=== PATIENT | male | born 1985 | race Caucasian/White ===

== ENCOUNTER 2022-09-03 08:43 | Observation (INO) | payer OTHER, SELFPAY ==
[2022-09-03] VITALS (30 sets, daily range): BP systolic 106–185; BP diastolic 76–135; PULSE 62–77; RESP 16–20; TEMP 36.2–36.6; O2SAT 90–100
--- NOTE | ~2022-09-03 | CT_ITS ---
EXAMINATION: CT abdomen pelvis w con DATE: 09/03/2022 14:15 INDICATION: Bilateral lower abdominal pain TECHNIQUE: Computed tomography (CT) of the abdomen and pelvis was performed with 100 cc Omnipaque 350 intravenous contrast. The dose-length product was 388.21 mGy-cm. Automated exposure control and iter ative reconstruction technique were employed. COMPARISON: CT dated 09/03/2022. FINDINGS: Heart size normal. No significant pleural or pericardial effusion. No significant vascular abnormality. No lymphadenopathy. Fatty infiltration of the liver. There are calcified granulomas of t he spleen. The pancreas, adrenal glands and kidneys are unremarkable. There is mild thickening of the ascending, transverse and descending colon, suspicious for colitis. No free air or free fluid. Laura l appendix. No free air or free fluid. Gallbladder is present. No significant vascular abnormality. N o lymphadenopathy. No acute osseous abnormality. IMPRESSION: 1. Mild thickening of the colon, suspicious for colitis, most likely infectious or inflammatory. Reviewed, dictated and finalized at location B.
--- NOTE | ~2022-09-03 | XR_ITS ---
EXAM: XR abdomen NG/feed tube insert DATE: 09/03/2022 17:13 HISTORY: NG placement . COMPARISON: None available. FINDINGS: NG tube, tip and side port project over the stomach Clear lung bases. Normal bowel gas marshall lenny. No organomegaly. No abnormal abdominal calcification. Regional bones and soft tissues normal for age. IMPRESSION: NG tube, in good position. Reviewed, dictated and finalized at location K. IMPRESSION: NG tube, in good position.
[2022-09-03 11:01] LABS: Basophils Percent Auto 0.2 % (0.2-1.2); Eosinophils Percent Auto 0.1 % (0-4.4); Hematocrit 47.5 % (42.0-52.0); Hemoglobin 17.1 g/dL (14.0-18.0); Immature Granulocyte Absolute 0.05 K/mm3 (0.00-0.031); Immature Granulocyte Percent A 0.3 % (0-0.5); Lymphocytes Absolute Auto 1.44 K/mm3 (0.9-3.2); Mean Corpuscular Hemoglobin 32.9 pg (26-34); Mean Corpuscular Volume 91.5 fl (80-100); Mean Platelet Volume 8.6 fl (7.4-10.4); Monocytes Absolute Auto 0.5 K/mm3 (0.1-0.6); Monocytes Percent Auto 3.3 % (2.6-8.5); Neutrophils Absolute Auto 13.9 K/mm3 (1.3-6.7); Neutrophils Percent Auto 87.1 % (45.5-73.1); Platelet Count Result 501 k/mm3 (150-375); Red Blood Count 5.19 M/mm3 (4.6-6.20); Red Cell Distribution Width 12.5 % (11.5-14.5); White Blood Count 15.9 K/mm3 (4.5-10.0)
[2022-09-03 11:13] LABS: Alanine Aminotransferase 23 U/L (6-50); Albumin Level 5.4 g/dL (3.5-5.1); Alkaline Phosphatase 93 U/L (38-126); Anion Gap 17 mmol/L (8-16); Aspartate Amino Transferase 24 U/L (17-59); Bilirubin,Total 1.1 mg/dL (0.2-1.3); Blood Urea Nitrogen 10 mg/dL (9-20); Calcium 9.8 mg/dL (8.4-10.2); Carbon Dioxide 18 mmol/L (22-30); Chloride 105 mmol/L (98-107); Estimated CRCL calculation 115 ml/min; Estimated Glomerular Filt Rate > 60; Glucose 139 mg/dL (65-110); Lipase 41 U/L (23-300); Potassium 4.6 mmol/L (3.4-5.0); Sodium 140 mmol/L (137-145)
[2022-09-03] MEDS: SODIUM CHLORIDE 0.9% IV 1,000 ML 999 ML IV CONT ×2 (11:19→17:23)
[2022-09-03] MEDS: ONDANSETRON INJ 4 MG/2 ML VIAL IV PUSH (11:20)
[2022-09-03] MEDS: MORPHINE SULFATE (*CRX) 4 MG/ML INJ IV PUSH (11:21)
[2022-09-03] MEDS: PROMETHAZINE HCL 25 MG/ML AMPUL 12.5 MG IV PUSH ×2 (12:28→22:58)
[2022-09-03 12:34] LABS: Appearance Urine Turbid (Clear); Bacteria Urine None Seen /hpf; Bilirubin Urine Negative (Negative); Blood Urine Negative (Negative); Color Urine Yellow (Yellow); Glucose Urine UA Negative (Negative); Ketones Urine 4+ mg/dL (Negative); Leukocyte Esterase Ur Negative LEU/UL (Negative); Nitrate Urine Negative (Negative); Non Pathogenic Casts 0-2; Protein Urine 1+ mg/dL (Negative); RBC Urine 0-2 /hpf (0-2); Specific Grav Ur 1.021 (1.001-1.035); Squamous Epithelial Cell Urine None seen /hpf (Few); WBC Urine 0-5 /hpf; pH Urine 8.5 (5.0-9.0)
[2022-09-03 12:39] LABS: Add Urine Microscopic? YES
--- NOTE | 2022-09-03 12:39 | PC.NURSE ---
While administering Promethazine IV, pt had an episode of emesis. Pt states that he is also starting to have his pain level rise again.
--- NOTE | 2022-09-03 13:21 | PC.NURSE ---
Shirley Em calls asking for pt information. RN confirms with pt that RN can share pt info which he verbally agrees to. RN updates family. No other questions at this time.
[2022-09-03] MEDS: fentaNYL CITRATE INJ (*CRX) 100 MCG/2 ML VIAL 50 MCG IV PUSH (13:28)
--- NOTE | 2022-09-03 13:29 | PC.NURSE ---
Pt has an episode of emesis while RN is administering pain medication. Emesis is a dark red color.
--- NOTE | 2022-09-03 16:12 | ED.NAVMDI ---
HPI - Nausea/Vomiting/Diarrhea General Chief complaint: Nausea/Vomiting/Diarrhea Stated complaint: n/v Time Seen by Provider: 09/03/22 09:35 History of Present Illness HPI Narrative: Patient is a 37-year-old male who presents ER with nausea and vomiting. Began in the early hours this morning. Reports he has diffuse abdominal cramping. He has had some diarrhea as well. Patient has history of colitis in the past. He has not been diagnosed with ulcerative colitis. He does not follow-up with a GI doctor. No fevers or chills or sweats. No alleviating factors for the vomiting. No fevers or chills or sweats. No known sick contacts. Related Data Home Medications Medication Instructions Recorded Confirmed No Home Medications 09/03/22 09/03/22 Allergies Allergy/AdvReac Type Severity Reaction Status Date / Time No Known Allergies Allergy Verified 09/03/22 09:41 Review of Systems Review of Systems: All systems reviewed & are unremarkable except as noted in HPI and below Constitutional: Constitutional: Denies chills, Reports fatigue and Denies fever(s) ENT: Denies nasal congestion and Denies sore throat Cardiovascular: Cardiovascular: Denies chest pain, Denies rapid heart rate and Denies radiating jaw, neck or arm pain Respiratory: Respiratory: Denies cough and Denies dyspnea Gastrointestinal: Gastrointestinal: Reports abdominal pain, Reports diarrhea, Reports nausea and Reports vomiting Genitourinary: Genitourinary: Denies oliguria and Denies dysuria PMFSH Past Medical History Medical History (Updated 09/03/22 @ 18:08 by Leonardo Underwood MD) Colitis Surgical History Surgical History (Updated 09/03/22 @ 18:05 by Leonardo Underwood MD) No history of previous surgery Exam Narrative: GENERAL: Uncomfortable-appearing, well-nourished, and in no acute distress. HEAD: Normocephalic, atraumatic. EYES: PERRL and EOMI. ENT: Mucous membranes moist. CHEST: Clear to auscultation. No respiratory distress. HEART: Regular rate and rhythm. Normal peripheral pulses. ABDOMEN: Soft, mild diffuse discomfort without point tenderness, nondistended. EXTREMITIES: Normal range of motion. No edema. Unkept feet that are quite dirty but toenails are painted. SKIN: Warm, dry, no rash. NEURO: Alert and oriented x3. PSYCH: Normal mood and affect. Course Course Emergency Course: Patient with persistent vomiting despite Zofran and promethazine. He is received IV fluid and urine is quite dark. CT scan with colitis. Patient now reporting he has vomited some blood in his emesis while here. Leg does have some blood-tinged emesis. NG tube placed in stomach lavage, no active bleeding so NG tube removed. Patient admitted to hospitalist service for intractable nausea and vomiting as well as colitis. Started on IV Zosyn. Patient aware of diagnosis/labs/treatment plan. Vital Signs Vital signs: Vital Signs Temperature 97.1 F L 09/03/22 09:36 Pulse Rate 65 09/03/22 09:36 Respiratory Rate 20 09/03/22 09:36 Blood Pressure 106/81 09/03/22 09:36 Pulse Oximetry 100 09/03/22 09:36 Temperature 97.6 F 09/03/22 09:45 Pulse Rate 77 09/03/22 14:41 Respiratory Rate 18 09/03/22 14:41 Blood Pressure 185/116 H 09/03/22 15:16 Pulse Oximetry 98 09/03/22 15:16 MDM - Nausea/Vomiting/Diarrhea Lab Data 09/03/22 10:09 09/03/22 10:09 Labs: Lab Results 09/03/22 09/03/22 09/03/22 Range/Units 10:09 10:09 12:19 WBC 15.9 H (4.5-10.0) K/mm3 RBC 5.19 (4.6-6.20) M/mm3 Hgb 17.1 (14.0-18.0) g/dL Hct 47.5 (42.0-52.0) % MCV 91.5 (80-100) fl MCH 32.9 (26-34) pg MCHC 36.0 (32-36) g/dl RDW 12.5 (11.5-14.5) % Plt Count 501 H (150-375) k/mm3 MPV 8.6 (7.4-10.4) fl Immature Gran % (Auto) 0.3 (0-0.5) % Neut % (Auto) 87.1 H (45.5-73.1) % Lymph % (Auto) 9.0 L (18.3-44.2) % Crockett % (Auto) 3.3 (2.6-8.5) % Eos % (Auto)
--- NOTE | 2022-09-03 17:32 | PC.NURSE ---
Pt offered ordered zofran and pt declined stating that zofran does not help him.
[2022-09-03] MEDS: PIPERACILLN/TAZ 3.375GM/NS50ML 3.375 GM/50 ML BAG IVPB ×2 (18:40→23:40)
--- NOTE | 2022-09-03 18:50 | ADMGEN ---
This patient, Valdo Alejo, was admitted to [facility] Surg Room 316-02. Patient/family oriented to hospital policies and general routines including ID bracelet, bed and alarms, visiting hours, pain management, procedures, bathroom and other care routines, personal items, smoking policy, room service/diet, and visiting hours. Information on how to activate the Rapid Response Team has been discussed. Patient/Family are encouraged to report perceived risks to care and to ask questions if they do not understand what they are told or what they should do.
--- NOTE | 2022-09-03 19:09 | PM.IMHP ---
H&P: HPI History of Present Illness Date/Time: 09/03/22 19:09 Chief Complaint: Nausea vomiting and diarrhea Narrative: This is a 37-year-old male patient who presented to the emergency room with complaints of nausea vomiting. The patient's vomiting started early in the morning. He also had diffuse abdominal cramping. He had diarrhea as well. The patient has a known history of colitis in the past. He denies any diagnosis of ulcerative colitis. The patient does not follow-up with a GI doctor. He has no fever chills. No sick contacts. The patient denies any home medications. Denies trying anything [id number]-[id number] for the symptoms. Abdominal pelvis CT shows mild thickening of the colon suspicious for colitis most likely infectious or inflammatory. Initially an NG tube was placed is the patient continued to have nausea vomiting. No blood was obtained from the lavage so the NG tube was removed. His white count was noted to be 15.9. Neutrophil percentage 87.1. The patient had 4+ ketones and 1+ protein in his urine. The patient was given IV fluids, IV morphine and Phenergan as well as fentanyl. The patient stated that the morphine did not help him. The patient was started on Zosyn. The patient is being admitted to observation status on the date of service of 09/03/2022. Review of Systems Review of Systems: All systems reviewed & are unremarkable except as noted in HPI and below Constitutional: Constitutional: Reports as per HPI and Reports no additional constitutional complaints Eyes: Eyes: Reports as per HPI and Reports no additional eye complaints ENT: Reports system reviewed and no additional complaints, except as documented and Reports Normal hearing present Cardiovascular: Cardiovascular: Reports no additional cardiovascular complaints Respiratory: Respiratory: Reports no additional respiratory complaints and Reports no additional respiratory complaints Gastrointestinal: Gastrointestinal: Reports as per HPI and Reports no additional gastrointestinal complaints Musculoskeletal: Musculoskeletal: Reports no additional musculoskeletal complaints Integumentary/Breasts: Skin/Breast: Reports system reviewed and no additional complaints, except as docu and Reports as per HPI Neurologic: Reports system reviewed and no additional complaints, except as documented, Reports as per HPI and Reports Normal hearing present Psychiatric: Psychiatric: Reports no additional psychiatric complaints and Reports as per HPI Endocrine: Endocrine: Reports no additional endocrine complaints Hematologic/Lymphatic: Hematologic/Lymphatic: Reports no additional hematologic/lymphatic complaints Allergic/Immunologic: Allergic/Immunologic: Reports no additional allergic/immunologic complaints PMFSH Past Medical History Medical History (Updated 09/03/22 @ 23:24 by Chelsi Philip NP) Colitis Surgical History Surgical History (Updated 09/03/22 @ 18:05 by Leonardo Underwood MD) No history of previous surgery Family History Family History (Updated 09/03/22 @ 23:15 by Chelsi Philip NP) Father Cancer Mother Hypertension Social History Social History (Updated 09/03/22 @ 23:16 by Chelsi Philip NP) Social History: The patient lives with a significant other. He has 2 children. The patient continues to smoke a pack a cigarettes a day. Code status full code Smoking status: Current every day smoker Tobacco type: cigarettes Substance use type: marijuana Lack of Transportation: YES Lack of Food: Never True Current Housing: I Have Housing Concerned About Future Housing: No Difficulty Paying Gas/Electric Bills: No Difficulty Paying for Meds: YES Currently Unemployed: No Education: High School Diploma/GED Difficulty w/ Childcare or Family Care: No Spiritual care concerns: No Meds Home Medications and Allergies Home Medications Medication Instructions Recorded Confirmed Type No Home Medi
[2022-09-03] MEDS: SODIUM CHLORIDE 0.9% IV 1,000 ML 125 ML IV CONT (19:10)
[2022-09-03] MEDS: HYDROmorphone HCL INJ (*CRX) 1 MG/ML SYR 0.5 MG IV PUSH (22:56)
[2022-09-04 00:20] LABS: Hematocrit 44.6 % (42.0-52.0); Hemoglobin 15.6 g/dL (14.0-18.0)
[2022-09-04] MEDS: PIPERACILLN/TAZ 3.375GM/NS50ML 3.375 GM/50 ML BAG IVPB ×2 (05:15→11:35)
[2022-09-04 05:36] VITALS: BP 134/83; PULSE 76; RESP 16; TEMP 36.4; O2SAT 96
[2022-09-04 07:45] LABS: Basophils Percent Auto 0.2 % (0.2-1.2); Hematocrit 42.8 % (42.0-52.0); Hemoglobin 15.2 g/dL (14.0-18.0); Immature Granulocyte Absolute 0.12 K/mm3 (0.00-0.031); Immature Granulocyte Percent A 0.5 % (0-0.5); Lymphocytes Absolute Auto 2.34 K/mm3 (0.9-3.2); Lymphocytes Percent Auto 10.4 % (18.3-44.2); Mean Corpuscular HGB Conc 35.5 g/dl (32-36); Mean Platelet Volume 9.1 fl (7.4-10.4); Monocytes Percent Auto 8.9 % (2.6-8.5); Platelet Count Result 480 k/mm3 (150-375); White Blood Count 22.5 K/mm3 (4.5-10.0)
[2022-09-04 07:50] LABS: Lactic Acid Reflex 1.4 mmol/L (0.7-2.0)
[2022-09-04 07:52] LABS: Alanine Aminotransferase 22 U/L (6-50); Albumin Level 4.9 g/dL (3.5-5.1); Alkaline Phosphatase 68 U/L (38-126); Anion Gap 10 mmol/L (8-16); Aspartate Amino Transferase 23 U/L (17-59); Bilirubin,Total 1.3 mg/dL (0.2-1.3); Blood Urea Nitrogen 9 mg/dL (9-20); Calcium 9.1 mg/dL (8.4-10.2); Carbon Dioxide 26 mmol/L (22-30); Chloride 106 mmol/L (98-107); Estimated CRCL calculation 115 ml/min; Estimated Glomerular Filt Rate > 60; Glucose 135 mg/dL (65-110); Potassium 3.3 mmol/L (3.4-5.0); Sodium 142 mmol/L (137-145)
[2022-09-04 08:00] VITALS: O2SAT 96
--- NOTE | 2022-09-04 08:51 | PC.NURSE ---
Pt A&O4 male. Pt up in shower this AM, reports it helps him feel better. Night nurse reports that pt. phone was taken home by girlfriend per pt report. Pt confirms.
[2022-09-04] MEDS: HYDROmorphone HCL INJ (*CRX) 1 MG/ML SYR 0.5 MG IV PUSH (08:58)
[2022-09-04] MEDS: SODIUM CHLORIDE 0.9% IV 1,000 ML 125 ML IV CONT (08:59)
[2022-09-04] MEDS: PANTOPRAZOLE SODIUM IV 40 MG VIAL IV PUSH (09:00)
[2022-09-04 10:59] LABS: Thyroid Stimulating Hormone Reflex 0.329 uIU/mL (0.465-4.68)
[2022-09-04 11:39] LABS: Hematocrit 40.1 % (42.0-52.0); Hemoglobin 14.2 g/dL (14.0-18.0)
[2022-09-04 12:42] LABS: Free T4 Free Thyroxine Reflex 1.58 ng/dL (0.78-2.19)
--- NOTE | 2022-09-04 13:33 | PC.NURSE ---
patient states that the GI specialist told me I can leave. I want my discharge papers. Patient has concerns about a ride once his leaves to garbage pick up worker the kids and then she has to go to work. I called Dr. Pablo at 1315 and he does not want to give any orders at this time because he is doing procedures and would like time to look at things before making any decisions. Dr. Pablo states that maybe the primary might be able to give orders, but he will not at this time. I called Eli at 1322 and she does not feel comfortable discharging the patient if not okay with Dr. Pablo. Patient notified that there is no orders for discharge. patient states that he does not want to leave AMA if possible, but also does not want to wait long. Cab voucher offered but patient refusing. Patient wanting to wait for discharge orders at this time
[2022-09-04 14:02] LABS: Total Triiodothyronine (T3) 1.06 NG/ML (0.97-1.69)
--- NOTE | 2022-09-04 14:21 | PC.NURSE ---
Pt had been having abdominal pain at the beginning of the shift. Pt took a shower and the pain continued to persist. Pt was treated with dilaudid. Pt reported that it helped briefly, but did not alleviate the pain. Pt had significant other at bedside for portion of the shift. Pt repeated remarked that he thought he would feel better if he had something to take his mind off of how he was feeling. Pt continued experience nausea. Phenergan was offered, but pt refused. Pt was seen by GI while here. Pt reports that GI told him there was no reason to stay. Conversation with GI was not witnessed by staff. Pt was ready to leave and stated to charge nurse that That told me there was no reason for me to stay so I want to leave . I overheard the conversation and went in to check on pt and charge nurse. Pt then stated the same to me. Pt began to get upset and stated AMA me then. Charge nurse offered to call provider and check to see why no discharge orders were in. Charge nurse spoke with GI and provider who was assigned to pt. Pt was informed of the conversation and that GI was not putting in any orders and provider would not at this time sign off because pt was here for a GI illness. I went in to speak with pt and educated him that until provider was made aware by GI, either by a physicians report or conversation that pt was cleared for discharge, she could not discharge pt. Pt became agitated and demanded to leave AMA and stated, remove this IV, you know I will take it out myself . Pt significant other asked pt to calm down. I removed pts IV. Pt was then brought AMA papers and pt refused to sign. Bladimir KAN witnessed refusal to sign. Pt was educated of what it meant to leave AMA, that we could no longer do anything to help the pt, that pt would have to go through the ED if he needed to return, and that his visit may not be covered by insurance. Pt left at 1400. Provider made aware.
--- NOTE | 2022-09-04 14:32 | PM.DS ---
DS: Admitting Diagnosis Discharge Date 09/04/22 Admitting Diagnosis nausea vomiting DS: Discharge Diagnosis Discharge Diagnosis (1) Colitis: Code(s): K52.9 - Noninfective gastroenteritis and colitis, unspecified Status: Acute Assessment and Plan: Check stool for cultures and C diff White count 15.9. The patient was started on Zosyn. (2) Intractable vomiting with nausea: Code(s): R11.2 - Nausea with vomiting, unspecified Status: Acute Assessment and Plan: The patient is content planing of severe abdominal cramping. Continue with pantoprazole The patient was started on Zosyn for colitis This could be cyclic vomiting as the patient does use marijuana. Continue with IV fluids May consider Haldol Patient was given Ativan He was also started on IV Dilaudid. I changed his diet back to clear liquid diet GI consult was greatly be appreciated Replace electrolytes as needed (3) Tobacco abuse: Code(s): Z72.0 - Tobacco use Status: Acute Assessment and Plan: The patient has been counseled on smoking cessation for approximately 5 minutes. A nicotine patch has been offered. DS: Summary Hospital Course Reason for hospitalization: nausea vomiting Hospital Course: This is a 37-year-old male with a insignificant past medical history of the present to the ED on 09/03/2022 with chief complaints of nausea and vomiting. Patient does have a history of colitis although he has never been diagnosed with any inflammatory disease. Patient does not take any daily medications for this chronic problem he has. When I was in the room with him he stated that he has episodes of this nausea vomiting frequently and he knows how to deal with it. Patient does not follow GI doctor and recently has moved to the area. He has no sick contacts. CT abdomen pelvis showed mild thickening of the colon suspicious for colitis most likely inflammatory or infectious. Patient did have NG tube placed in the ED due patient claiming he had blood in his emesis. NG to lavage did not contain any blood. Patient did present to the ED with a white count of 15.9 with 87.1% neutrophils. Urine with 4+ ketones and +1 protein. patient started on anti emetics, analgesics, IV fluids and Zosyn. GI consulted. Repeat labs in the morning revealed a white count of 22.5. I talked with the patient and he stated that he is not waiting all day to see GI and will be leaving AMA if he has to stay here 1 more night. GI did consult on the patient although patient did not want to stay long enough to here GI is suggestions. GI did suggest that patient had nausea vomiting due to dehydration and cannabis use. Recommend outpatient colonoscopy. Patient left the hospital against medical advise, the risks of of leaving the hospital such as worsening health condition or were explained to the patient and he voices understanding. Patient states that he has gone through this many times and he knows what is going on with his body. Patient also stated that he would refuse any scopes that would be recommended. Patient left against medical advice at 2:00 p.m. on 09/04/2022. Time Spent with Patient Time attestation: Total time spent providing and/or coordinating discharge services: Exam Narrative: GENERAL: Comfortable, no acute distress HENMT: moist mucous membranes EYES: EOM intact b/l NECK: no lymphadenopathy RESPIRATORY: clear to auscultation CARDIO: RRR GI: soft, nontender, hyperactive bowel sounds SKIN: no rashes EXTREMITIES: no edema, redness or tenderness DS: Data Data Completed and Pending Labs on day of discharge: Labs from last 24 hours 09/04/22 09/04/22 09/04/22 11:23 07:17 07:17 WBC RBC Hgb 14.2 Hct 40.1 L MCV MCH MCHC RDW Plt Count MPV Immature Gran % (Auto) Neut % (Auto) Lymph % (Auto) Jennings % (Auto) Eos % (Auto) Baso % (Auto) Lymph #
--- NOTE | 2022-09-04 14:34 | WPDGICN ---
Assessment and Plan Assessment and plan (1) Intractable vomiting with nausea: Code(s): R11.2 - Nausea with vomiting, unspecified Status: Acute Assessment and Plan: Patient admitted with nausea vomiting. This appeared to improve dramatically with IV rehydration. Likely this is with dehydration is contributing to this nausea vomiting. Cannot exclude some component of this being related to use of cannabis. Currently resolved would advance diet. Suggest he limit cannabis use. No further GI workup warranted at this time. (2) Colitis: Code(s): K52.9 - Noninfective gastroenteritis and colitis, unspecified Status: Acute Assessment and Plan: CT scan in the ER raises a question of a colitis because of thickened colon. This could be nonspecific. Patient does have concerns because of irregular bowel movements. Would recommend a outpatient colonoscopy be arranged to evaluate for for this abnormality. High-fiber diet advised at this time. GI Consult Note Consult date/time: 09/04/22 14:34 Reason for consult: Abnormal CT scan. HPI: Valdo Alejo is a 37 year old male I am asked to see at the request the hospitalist service. Patient reports he present the hospital last evening with nausea vomiting. Upon presentation was felt to be dehydrated. Overnight he was given IV fluids and feels much improved today. He reports having had a regular bowel movement since somewhat concerned over this. In the ER CT scan was performed which suggested the patient may have colitis . Patient denies any ongoing diarrhea. He denies a fever. Family history noncontributory. Patient does report frequent use of marijuana. Review of Systems Review of Systems: Review of systems noncontributory. PMFSH Past Medical History Medical History (Updated 09/03/22 @ 23:24 by Chelsi Philip NP) Colitis Surgical History Surgical History (Updated 09/03/22 @ 18:05 by Leonardo Underwood MD) No history of previous surgery Family History Family History (Updated 09/03/22 @ 23:15 by Chelsi Philip NP) Father Cancer Mother Hypertension Social History Social History (Updated 09/03/22 @ 23:16 by Chelsi Philip NP) Social History: The patient lives with a significant other. He has 2 children. The patient continues to smoke a pack a cigarettes a day. Code status full code Smoking status: Current every day smoker Tobacco type: cigarettes Substance use type: marijuana Lack of Transportation: YES Lack of Food: Never True Current Housing: I Have Housing Concerned About Future Housing: No Difficulty Paying Gas/Electric Bills: No Difficulty Paying for Meds: YES Currently Unemployed: No Education: High School Diploma/GED Difficulty w/ Childcare or Family Care: No Spiritual care concerns: No Meds Home Medications and Allergies Home Medications Medication Instructions Recorded Confirmed Type No Home Medications 09/03/22 09/03/22 History Allergies Allergy/AdvReac Type Severity Reaction Status Date / Time No Known Allergies Allergy Verified 09/03/22 09:41 Vital Signs Vital Signs - 24 hr 09/03/22 14:41 09/03/22 14:46 09/03/22 15:01 Temperature Pulse Rate 77 Respiratory Rate 18 Blood Pressure 155/88 H 143/92 H 181/135 H Pulse Oximetry 100 99 97 Oxygen Delivery 09/03/22 15:16 09/03/22 15:17 09/03/22 17:43 Temperature Pulse Rate Respiratory Rate Blood Pressure 185/116 H Pulse Oximetry 98 100 97 Oxygen Delivery 09/03/22 17:45 09/03/22 18:01 09/03/22 19:05 Temperature 97.9 F Pulse Rate 62 Respiratory Rate 18 Blood Pressure 138/81 142/79 H 149/76 H Pulse Oximetry 94 100 Oxygen Delivery 09/03/22 21:30 09/03/22 22:26 09/04/22 05:36 Temperature 97.9 F 97.6 F Pulse Rate 65 76 Respiratory Rate 16 16 Blood Pressure 132/96 H 134/83 Pulse Oximetry 95 96 Oxygen Delivery Room Air
== END 2022-09-04 14:00 | disposition left against medical advice (07) ==
LOC: ANHED 09:54 → ANH3MEDSUR 18:08
PROVIDERS: Nurse Practitioner; Admitting Provider Family Medicine; Emergency Provider Emergency Medicine; Visit Provider Internal Medicine Critical Care Medicine
DX: K52.9 Noninfective gastroenteritis and colitis, unspecified (principal); R11.2 Nausea with vomiting, unspecified; E86.0 Dehydration; Z53.29 Procedure and treatment not carried out because of patient's decision for other reasons; D72.829 Elevated white blood cell count, unspecified; F17.210 Nicotine dependence, cigarettes, uncomplicated; F12.90 Cannabis use, unspecified, uncomplicated
CPT/HCPCS: 43752; 36415; 74177; 80053; 81001; 83605; 83690; 83735; 84439; 84443; 84480; 85014; 85018; 85025; 96361; 96365; 96374; 96375; 96376; 99285; C9113; G0378; J1170; J2270; J2405; J2543; J2550; J3010; J7030; Q9967